=== PATIENT | male | born 1990 | race Caucasian/White ===

== ENCOUNTER 2018-03-07 10:47 | Emergency (ER) | payer MEDICAID ==
[2018-03-07] MEDS ORDERED: XANAX1 MG (11:37)
[2018-03-07] MEDS ORDERED: AMBIEN5 MG PO (11:38)
[2018-03-07] MEDS ORDERED: ZOLOFT20 MG/ML PO (11:39)
[2018-03-07 11:42] LABS: BASOPHILS 0.4 % (0-2); EOSINOPHILS 0.9 % (0-7); HEMATOCRIT 40.3 % (42.0-54.0); HEMOGLOBIN 13.9 g/dL (13.5-17.5); IMMATURE GRANULOCYTES 0.2 % (0-5); MCH 30.4 pg (26.0-34.0); MCHC 34.5 g/dL (31.0-37.0); MCV 88.2 fL (80.0-100.0); MEAN PLATELET VOLUME 11.1 fL (7.4-10.4); NEUTROPHILS 66.5 % (40-80); PLATELET COUNT 173 10x3/uL (130-400); RBC 4.57 10x6/uL (4.20-6.10); RDW 12.7 % (11.5-14.5); WBC 9.1 10x3/uL (4.8-10.8)
[2018-03-07 11:54] LABS: ALBUMIN 4.5 g/dL (3.4-5.0); ALKALINE PHOSPHATASE 55 U/L (46-116); ALT (SGPT) 18 U/L (10-68); BILIRUBIN - TOTAL 0.75 mg/dL (0.2-1.3); CALC OSMOLALITY 277 mosm/kg (275-300); CALCIUM 8.6 mg/dL (8.5-10.1); CARBON DIOXIDE 25.6 mmol/L (21.0-32.0); CHLORIDE - SERUM 104 mmol/L (98-107); CREATININE - SERUM 0.9 mg/dL (0.6-1.3); GLUCOSE 80 mg/dL (74-106); MAGNESIUM - SERUM 2.4 mg/dL (1.8-2.4); POTASSIUM - SERUM 3.7 mmol/L (3.5-5.1); PROTEIN - SERUM 8.2 g/dL (6.4-8.2); SODIUM 139 mmol/L (136-145); UREA NITROGEN 16 mg/dL (7-18); eGFR NON AFRICAN AMERICAN > 90 mL/min (90-120)
[2018-03-07 13:15] LABS: UDS - AMPHET POSITIVE QUAL (NEGATIVE); UDS - BARB NEGATIVE QUAL (NEGATIVE); UDS - BENZO NEGATIVE QUAL (NEGATIVE); UDS - COCAINE NEGATIVE QUAL (NEGATIVE); UDS - OPIATE NEGATIVE QUAL (NEGATIVE); UDS - PCP NEGATIVE QUAL (NEGATIVE); UDS - THC NEGATIVE QUAL (NEGATIVE)
[2018-03-07 13:41] LABS: APPEARANCE HAZY (CLEAR); BILIRUBIN NEGATIVE (NEGATIVE); COLOR DK YELLOW (YELLOW); GLUCOSE NEGATIVE (NEGATIVE); KETONE MODERATE mg/dL (NEGATIVE); NITRITE NEGATIVE (NEGATIVE); PROTEIN TRACE mg/dL (NEGATIVE); SPECIFIC GRAVITY 1.025 (1.005-1.020); UROBILINOGEN NORMAL (NORMAL)
[2018-03-07 13:42] LABS: BACTERIA FEW /hpf (NONE SEEN); EPITHELIAL CELLS 0-5 /hpf (0-5); MUCUS >1+ /lpf (NONE SEEN); RED CELLS - URINE 0-5 /hpf (0-5); SPERMATOZOA PRESENT /hpf (NONE SEEN); WHITE CELLS - URINE 0-5 /hpf (0-5)
[2018-03-08 01:05] VITALS: BP 138/85
== END 2018-03-07 23:53 | disposition other institution (70) ==
LOC: D.ER 10:47
PROVIDERS: Family Medicine
DX: R45.851 Suicidal ideations (principal); R44.0 Auditory hallucinations

== ENCOUNTER 2018-03-19 16:59 | Emergency (ER) | payer MEDICAID ==
[~2018-03-19] VITALS: Ht 177.8 cm; Wt 72.7 kg
[~2018-03-19 16:59] MED LIST: AMBIEN5 MG PO; XANAX1 MG; ZOLOFT20 MG/ML PO
[2018-03-19 17:05] VITALS: Ht 177.8 cm; Wt 72.7 kg
[2018-03-19 17:32] LABS: BASOPHILS 0.4 % (0-2); EOSINOPHILS 3.1 % (0-7); HEMATOCRIT 44.3 % (42.0-54.0); IMMATURE GRANULOCYTES 0.1 % (0-5); MCH 29.8 pg (26.0-34.0); MCHC 33.9 g/dL (31.0-37.0); MCV 88.1 fL (80.0-100.0); MEAN PLATELET VOLUME 10.9 fL (7.4-10.4); MONOCYTES 9.8 % (2-11); NEUTROPHILS 49.6 % (40-80); RBC 5.03 10x6/uL (4.20-6.10); RDW 12.7 % (11.5-14.5); WBC 7.5 10x3/uL (4.8-10.8)
[2018-03-19 17:39] LABS: ALBUMIN 4.3 g/dL (3.4-5.0); ALKALINE PHOSPHATASE 51 U/L (46-116); ALT (SGPT) 53 U/L (10-68); BILIRUBIN - TOTAL 0.87 mg/dL (0.2-1.3); CALC OSMOLALITY 272 mosm/kg (275-300); CALCIUM 8.1 mg/dL (8.5-10.1); CARBON DIOXIDE 26.6 mmol/L (21.0-32.0); CHLORIDE - SERUM 101 mmol/L (98-107); CREATININE - SERUM 0.9 mg/dL (0.6-1.3); GLUCOSE 87 mg/dL (74-106); POTASSIUM - SERUM 3.6 mmol/L (3.5-5.1); PROTEIN - SERUM 8.3 g/dL (6.4-8.2); SODIUM 136 mmol/L (136-145); UREA NITROGEN 17 mg/dL (7-18); eGFR NON AFRICAN AMERICAN > 90 mL/min (90-120)
[2018-03-19 17:45] LABS: PLATELET COUNT 216 10x3/uL (130-400)
[2018-03-19 18:26] LABS: APPEARANCE CLEAR (CLEAR); BILIRUBIN NEGATIVE (NEGATIVE); COLOR YELLOW (YELLOW); GLUCOSE NEGATIVE (NEGATIVE); KETONE NEGATIVE (NEGATIVE); NITRITE NEGATIVE (NEGATIVE); PROTEIN NEGATIVE (NEGATIVE); SPECIFIC GRAVITY 1.025 (1.005-1.020); UROBILINOGEN NORMAL (NORMAL)
[2018-03-19 18:29] LABS: UDS - AMPHET POSITIVE QUAL (NEGATIVE); UDS - BARB NEGATIVE QUAL (NEGATIVE); UDS - BENZO NEGATIVE QUAL (NEGATIVE); UDS - COCAINE NEGATIVE QUAL (NEGATIVE); UDS - OPIATE NEGATIVE QUAL (NEGATIVE); UDS - PCP NEGATIVE QUAL (NEGATIVE); UDS - THC POSITIVE QUAL (NEGATIVE)
[2018-03-19 21:30] VITALS: BP 141/83
== END 2018-03-19 21:35 | disposition other institution (70) ==
LOC: D.ER 16:59
PROVIDERS: Emergency Medicine
DX: R44.1 Visual hallucinations (principal); F41.9 Anxiety disorder, unspecified; R44.0 Auditory hallucinations; F17.200 Nicotine dependence, unspecified, uncomplicated

== ENCOUNTER 2018-06-26 22:51 | Emergency (ER) | payer MEDICAID ==
[~2018-06-26] VITALS: Ht 177.8 cm; Wt 90.9 kg
[2018-06-26 23:05] VITALS: Ht 177.8 cm; Wt 90.9 kg
[2018-06-26 23:29] LABS: HEMATOCRIT 38.9 % (42.0-54.0); HEMOGLOBIN 13.6 g/dL (13.5-17.5); LYMPHOCYTES 27.1 % (15-50); MCH 29.9 pg (26.0-34.0); MCV 85.5 fL (80.0-100.0); MEAN PLATELET VOLUME 9.9 fL (7.4-10.4); NEUTROPHILS 64.4 % (40-80); PLATELET COUNT 226 10x3/uL (130-400); RBC 4.55 10x6/uL (4.20-6.10); RDW 11.9 % (11.5-14.5); WBC 9.5 10x3/uL (4.8-10.8)
[2018-06-26 23:30] LABS: APPEARANCE CLEAR (CLEAR); BILIRUBIN NEGATIVE (NEGATIVE); COLOR YELLOW (YELLOW); GLUCOSE NEGATIVE (NEGATIVE); KETONE NEGATIVE (NEGATIVE); NITRITE NEGATIVE (NEGATIVE); PROTEIN TRACE mg/dL (NEGATIVE); UROBILINOGEN NORMAL (NORMAL)
[2018-06-26 23:32] LABS: BACTERIA FEW /hpf (NONE SEEN); EPITHELIAL CELLS 0-5 /hpf (0-5); RED CELLS - URINE 0-5 /hpf (0-5); WHITE CELLS - URINE 0-5 /hpf (0-5)
[2018-06-26 23:33] LABS: UDS - AMPHET POSITIVE QUAL (NEGATIVE); UDS - BARB NEGATIVE QUAL (NEGATIVE); UDS - BENZO NEGATIVE QUAL (NEGATIVE); UDS - COCAINE NEGATIVE QUAL (NEGATIVE); UDS - OPIATE NEGATIVE QUAL (NEGATIVE); UDS - PCP NEGATIVE QUAL (NEGATIVE); UDS - THC POSITIVE QUAL (NEGATIVE)
[2018-06-26 23:47] LABS: ALBUMIN 3.7 g/dL (3.4-5.0); ALKALINE PHOSPHATASE 54 U/L (46-116); ALT (SGPT) 13 U/L (10-68); BILIRUBIN - TOTAL 0.55 mg/dL (0.2-1.3); CALC OSMOLALITY 285 mosm/kg (275-300); CALCIUM 8.5 mg/dL (8.5-10.1); CARBON DIOXIDE 25.3 mmol/L (21.0-32.0); CHLORIDE - SERUM 106 mmol/L (98-107); GLUCOSE 88 mg/dL (74-106); POTASSIUM - SERUM 3.3 mmol/L (3.5-5.1); PROTEIN - SERUM 7.6 g/dL (6.4-8.2); SODIUM 143 mmol/L (136-145); UREA NITROGEN 18 mg/dL (7-18); eGFR NON AFRICAN AMERICAN > 90 mL/min (90-120)
[2018-06-27 02:15] VITALS: BP 108/76
== END 2018-06-27 03:30 ==
LOC: D.ER 22:51
PROVIDERS: Family Medicine
DX: F23 Brief psychotic disorder (principal); R45.850 Homicidal ideations; F15.10 Other stimulant abuse, uncomplicated; F12.10 Cannabis abuse, uncomplicated

== ENCOUNTER 2019-01-01 08:30 | Emergency (ER) | payer MEDICAID ==
[2019-01-01 08:33] VITALS: BMI 25.8
[2019-01-01 09:45] VITALS: BP 116/65
== END 2019-01-01 09:46 | disposition home or self-care (01) ==
LOC: D.ER 08:30
DX: S81.801A Unspecified open wound, right lower leg, initial encounter (principal); W26.9XXA Contact with unspecified sharp object(s), initial encounter; Y93.89 Activity, other specified; Y92.89 Other specified places as the place of occurrence of the external cause

== ENCOUNTER 2019-02-09 02:20 | Observation (INO) | payer MEDICAID ==
[~2019-02-09] VITALS: Ht 177.8 cm; Wt 61.4 kg
--- NOTE | 2019-02-09 02:32 | NUR ---
PT LETHARGIC UNABLE TO ANSWER SI QUESTIONS AT PRESENT
--- NOTE | 2019-02-09 03:18 | NUR ---
URINE SENT TO LAB.
[2019-02-09 03:20] LABS: APPEARANCE CLEAR (CLEAR); BILIRUBIN NEGATIVE (NEGATIVE); COLOR YELLOW (YELLOW); GLUCOSE NEGATIVE (NEGATIVE); KETONE NEGATIVE (NEGATIVE); NITRITE NEGATIVE (NEGATIVE); PROTEIN NEGATIVE (NEGATIVE); UROBILINOGEN NORMAL (NORMAL)
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
[2019-02-09 03:33] VITALS: BP 115/63
[2019-02-09 03:36] LABS: BASOPHILS 0.6 % (0-2); EOSINOPHILS 4.3 % (0-7); HEMATOCRIT 36.5 % (42.0-54.0); HEMOGLOBIN 12.1 g/dL (13.5-17.5); IMMATURE GRANULOCYTES 0.1 % (0-5); LYMPHOCYTES 37.5 % (15-50); MCH 28.4 pg (26.0-34.0); MCHC 33.2 g/dL (31.0-37.0); MCV 85.7 fL (80.0-100.0); MEAN PLATELET VOLUME 10.5 fL (7.4-10.4); NEUTROPHILS 51.5 % (40-80); PLATELET COUNT 188 10x3/uL (130-400); RBC 4.26 10x6/uL (4.20-6.10); RDW 14.2 % (11.5-14.5); WBC 8.3 10x3/uL (4.8-10.8)
[2019-02-09 03:39] LABS: UDS - AMPHET POSITIVE QUAL (NEGATIVE); UDS - BARB NEGATIVE QUAL (NEGATIVE); UDS - BENZO POSITIVE QUAL (NEGATIVE); UDS - COCAINE NEGATIVE QUAL (NEGATIVE); UDS - OPIATE NEGATIVE QUAL (NEGATIVE); UDS - PCP NEGATIVE QUAL (NEGATIVE); UDS - THC POSITIVE QUAL (NEGATIVE)
[2019-02-09 04:08] LABS: ALBUMIN 3.5 g/dL (3.4-5.0); ALKALINE PHOSPHATASE 71 U/L (46-116); ALT (SGPT) 19 U/L (10-68); BILIRUBIN - TOTAL 0.27 mg/dL (0.2-1.3); CALC OSMOLALITY 285 mosm/kg (275-300); CALCIUM 8.2 mg/dL (8.5-10.1); CARBON DIOXIDE 23.2 mmol/L (21.0-32.0); CHLORIDE - SERUM 107 mmol/L (98-107); CREATININE - SERUM 0.9 mg/dL (0.6-1.3); GLUCOSE 115 mg/dL (74-106); POTASSIUM - SERUM 3.2 mmol/L (3.5-5.1); PROTEIN - SERUM 7.6 g/dL (6.4-8.2); SODIUM 143 mmol/L (136-145); UREA NITROGEN 13 mg/dL (7-18); eGFR NON AFRICAN AMERICAN > 90 mL/min (90-120)
[2019-02-09 04:11] LABS: MAGNESIUM - SERUM 2.2 mg/dL (1.8-2.4)
--- NOTE | 2019-02-09 04:21 | NUR ---
PT GIVEN SANDWICH AND SODA.
[2019-02-09 04:30] VITALS: BP 115/64
[2019-02-09 05:30] VITALS: BP 113/74
[2019-02-09 06:23] VITALS: BP 117/73
--- NOTE | 2019-02-09 07:24 | NUR ---
PT ASLEEP LYING ON BACK. WON'T WAKE FOR INFORMATION, DID QUICK START. BREATHS EVEN/REGULAR/UNLABORED, CL IN REACH, SRX2
--- NOTE | 2019-02-09 09:54 | NUR ---
PT IS NOW AWAKE AND ORIENTED BUT DOES NOT REMEMBER ANYTHING PRIOR TO HIM WAKING UP IN THE HOSPITAL. PT SMELLS OF VOMIT, ENCOURAGED HIM TO TAKE A SHOWER IN HOPES OF MAKING HIM FEEL BETTER.PT STATES HE WILL SHOWER WHEN HE'S DONE EATING.
[2019-02-09 10:09] VITALS: BMI 23.6
[2019-02-09 15:14] VITALS: Ht 177.8 cm; Wt 61.4 kg
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
--- NOTE | 2019-02-09 16:38 | NUR ---
PT IS AWAKE AND ORIENTED, COMPLETED ELECTORLYTE PROTOCOL. PT STATES HE WANTS TO WAIT FOR SUPPER, BUST TICKET PROVIDED TO GET BACK TO HIS [facility] HOUSE. CL IN REACH, SRX2.
--- NOTE | 2019-02-09 17:33 | NUR ---
PT AMBULATED OUT, REFUSED OFFER OF WHEELCHAIR. GIVEN BUS TICKET.
--- NOTE | 2019-02-11 08:32 | MORECARE ---
CASE MANAGEMENT DISCHARGE SUMMARY PATIENT: AMINA DOTSON UNIT: [id number] ADM DATE: 02/09/19 AGE: 28 : 88 SEX: M ROOM/BED: D.2107 AUTHOR: CRUZ MELO PHYSICIAN: REFERRING PHYSICIAN: MIHAI LOMELI MD DATE OF SERVICE: 02/11/19 Discharge Plan [facility] Name[facility] [facility] 1990 Planned Disposition: Home Anticipated Discharge Date: 02/09/19 Discharge Date: 02/09/2019 Expected LOS: 1 Initial Reviewer: [id number] Initial Review Date: 02/11/2019 Generated: 02/11/19 9:32 am Patient Name: AMINA DOTSON Page [id number] at 0832 All edits/amendments must be made on the electronic document DICTATION DATE: 02/11/19 0832 ELECTRICAL APPLIANCE MECHANIC: MABEL 02/11/19 0832 RPT#: [id number] DC DATE:02/09/19 STATUS: DIS IN [facility] [address] [place] [address] END OF REPORT
== END 2019-02-09 17:33 | disposition home or self-care (01) ==
LOC: D.ER 02:20 → D.M2 05:07 → OBSVTIME 05:07 → D.M2 05:07
PROVIDERS: Family Medicine; ADMIT Internal Medicine Nephrology; ATTEND Internal Medicine Nephrology
DX: G92 Toxic encephalopathy (principal); F10.129 Alcohol abuse with intoxication, unspecified; F15.10 Other stimulant abuse, uncomplicated; E87.6 Hypokalemia; D64.9 Anemia, unspecified; F12.10 Cannabis abuse, uncomplicated